=== PATIENT | male | born 1995 | race Two or more races ===

== ENCOUNTER 2023-04-01 17:15 | Emergency (ER) | payer OTHER ==
[~2023-04-01] VITALS: Ht 188 cm; Wt 156.7 kg
[2023-04-01] MEDS ORDERED: HYDROcodone-ACET 5/325MG TAB PO ONE (22:30)
[2023-04-01] MEDS ORDERED: CYCL-839 PO (22:35)
[2023-04-01] MEDS ORDERED: IBUP-1455 PO (22:35)
[2023-04-02 02:59] VITALS: BP 156/94; PULSE 116; RESP 18; TEMP 96.5; O2SAT 95
== END 2023-04-01 22:51 | disposition home or self-care (01) ==
LOC: ER 17:15
DX: S82.492A Other fracture of shaft of left fibula, initial encounter for closed fracture (principal); S13.8XXA Sprain of joints and ligaments of other parts of neck, initial encounter; S23.3XXA Sprain of ligaments of thoracic spine, initial encounter; S33.5XXA Sprain of ligaments of lumbar spine, initial encounter; S43.492A Other sprain of left shoulder joint, initial encounter; S09.8XXA Other specified injuries of head, initial encounter; V59.49XA Driver of pick-up truck or van injured in collision with other motor vehicles in traffic accident, initial encounter; Y93.I9 Activity, other involving external motion; Y92.89 Other specified places as the place of occurrence of the external cause; Y99.8 Other external cause status
CPT/HCPCS: 29505; 70450; 72125; 72128; 72131; 73030; 73562